=== PATIENT | female | born 1965 | race Caucasian/White ===

== ENCOUNTER 2017-06-26 07:06 | Outpatient (CLI) | payer OTHER ==
--- NOTE | 2017-06-28 08:31 | Mammography Report ---
BILATERAL DIGITAL SCREENING MAMMOGRAM: 06/26/2017 CLINICAL INDICATION: A 52-year-old with history of late childbearing for screening. COMPARISON: 11/2015, 06/2014, 05/2013, 01/2011, 11/2009. TECHNIQUE: Routine CC and MLO projections were obtained of the breasts. FINDINGS: The breasts again demonstrate heterogeneously dense fibroglandular parenchyma bilaterally. Coarse and punctate, typically benign calcifications are present. No suspicious masses, clustered microcalcifications, or regions of architectural distortion are identified. IMPRESSION: Benign findings. RECOMMENDATIONS: Routine annual screening unless otherwise clinically indicated. BIRADS category 2 benign findings. STANDARD QUALIFYING STATEMENTS 1. This examination was reviewed with the aid of Computed-Aided Detection (CAD) . 2. A negative or benign imaging report should not delay biopsy if clinically suspicious findings are present. Consider surgical consultation if warranted. More than 5% of cancers are not identified by imaging. 3. Dense breasts may obscure an underlying neoplasm. TD: 06/27/2017 21:16 TY
== END 2017-06-26 07:07 | disposition home or self-care (01) ==
LOC: DI 07:06
PROVIDERS: ATTEND Physician Assistant Medical
DX: Z12.31 Encounter for screening mammogram for malignant neoplasm of breast (principal)
CPT/HCPCS: 77067

== ENCOUNTER 2017-09-18 08:00 | Outpatient (CLI) | payer OTHER ==
[2017-09-18 12:55] LABS: ALBUMIN 4.5 g/dL (3.2-5.5); ALBUMIN/GLOBULIN RATIO 1.6 (1.0-2.2); ALKALINE PHOSPHATASE 44 IU/L (42-121); ALT ALANINE AMINOTRANSFERASE 47 IU/L (10-60); AST ASPARTATE AMINOTRANSFERASE 34 IU/L (10-42); BUN - BLOOD UREA NITROGEN 13 mg/dL (6-20); CALCIUM 9.1 mg/dL (8.5-10.3); CARBON DIOXIDE - CO2 24 mmol/L (21-32); CHLORIDE 105 mmol/L (101-111); CHOL/HDL RATIO 4.3 (<4.4); CHOLESTEROL 181 mg/dL; CREATININE 0.8 mg/dL (0.4-1.0); GFR - MDRD 75 (>89); GLUCOSE 91 mg/dL (70-100); HDL CHOLESTEROL 42 mg/dL; LDL CHOLESTEROL,CALCULATED 111 mg/dL; LDL/HDL RATIO 2.6 (<4.4); SODIUM 138 mmol/L (135-145); TOTAL PROTEIN 7.3 g/dL (6.7-8.2); VLDL CHOLESTEROL 28 mg/dL
[2017-09-19 09:17] LABS: HEPATITIS C ANTIBODY NON-REACTIVE (NON-REACTIVE)
== END 2017-09-18 08:01 | disposition home or self-care (01) ==
LOC: LAB.WCP 08:00
PROVIDERS: ATTEND Physician Assistant Medical
DX: Z00.00 Encounter for general adult medical examination without abnormal findings (principal); Z78.9 Other specified health status
CPT/HCPCS: 36415; 80053; 80061; 83721; 86803

== ENCOUNTER 2018-07-09 08:00 | Outpatient (CLI) | payer OTHER ==
[2018-07-09 14:42] LABS: ALBUMIN 4.9 g/dL (3.2-5.5); ALBUMIN/GLOBULIN RATIO 1.8 (1.0-2.2); ALKALINE PHOSPHATASE 53 IU/L (42-121); ALT ALANINE AMINOTRANSFERASE 74 IU/L (10-60); AST ASPARTATE AMINOTRANSFERASE 44 IU/L (10-42); BUN - BLOOD UREA NITROGEN 16 mg/dL (6-20); CALCIUM 9.1 mg/dL (8.5-10.3); CARBON DIOXIDE - CO2 27 mmol/L (21-32); CHLORIDE 104 mmol/L (101-111); CREATININE 0.7 mg/dL (0.4-1.0); GFR - MDRD 87 (>89); GLUCOSE 96 mg/dL (70-100); SODIUM 138 mmol/L (135-145); TOTAL PROTEIN 7.7 g/dL (6.7-8.2)
== END 2018-07-09 23:59 | disposition home or self-care (01) ==
LOC: LAB.WCP 08:00
PROVIDERS: ATTEND Physician Assistant Medical
DX: Z00.00 Encounter for general adult medical examination without abnormal findings (principal); E03.9 Hypothyroidism, unspecified; R74.8 Abnormal levels of other serum enzymes
CPT/HCPCS: 36415; 80053; 84443; 86704; 86709

== ENCOUNTER 2018-07-28 16:20 | Outpatient (CLI) | payer OTHER ==
--- NOTE | 2018-07-29 08:28 | Mammography Report ---
Reason: SCREENING MAMMO Procedure Date: 07/28/2018 Accession Number: [id number] / [id number] Procedure: GUSTAVO - Screening Mammo w/Aman CPT Code: FULL RESULT: EXAM: Screening Mammo w/Aman DATE: 07/28/2018 4:49 PM CLINICAL HISTORY: Screening encounter. History of early menses and late childbearing. TECHNIQUE: Bilateral CC, laterally exaggerated CC, MLO views were obtained. COMPARISON: 06/26/2017 through 05/14/2013. FINDINGS: The breasts demonstrate heterogeneously dense fibroglandular parenchyma bilaterally. There are coarse typically benign calcifications. No suspicious masses, clustered microcalcifications, or regions of architectural distortion are identified. IMPRESSION: Benign findings RECOMMENDATION: Routine annual screening unless otherwise clinically indicated. BIRADS CATEGORY 2: Benign findings STANDARD QUALIFYING STATEMENTS: 1. This examination was not reviewed with the aid of Computer-Aided Detection (CAD). 2. A negative or benign imaging report should not preclude biopsy if clinically suspicious findings are present. 3. Dense breasts may obscure an underlying neoplasm. 4. This examination was reviewed with the aid of 3D breast imaging (tomosynthesis).
== END 2018-07-28 16:21 | disposition home or self-care (01) ==
LOC: DI 16:20
DX: Z12.31 Encounter for screening mammogram for malignant neoplasm of breast (principal)
CPT/HCPCS: 77063; 77067

== ENCOUNTER 2019-04-23 09:27 | Outpatient (CLI) | payer OTHER | END 2019-04-23 23:59 | disposition home or self-care (01) | LOC: LAB.WCP 09:27 | PROVIDERS: ATTEND Physician Assistant Medical | DX: Z71.89 Other specified counseling (principal) | CPT/HCPCS: 36415; 86317; 86735; 86762; 86765; 86787 ==

== ENCOUNTER 2020-01-26 08:00 | Outpatient (CLI) | payer OTHER ==
[2020-01-26 12:17] LABS: BASOPHILS % (AUTO) 0.8 %; EOSINOPHILS # (AUTO) 0.1 10^3/uL (0.0-0.7); EOSINOPHILS % (AUTO) 1.8 %; HGB - HEMOGLOBIN 14.6 g/dL (12.0-16.0); LYMPHOCYTES # (AUTO) 1.6 10^3/uL (1.5-3.5); LYMPHOCYTES % (AUTO) 39.8 %; MEAN CORPUSCULAR HGB CONC 34.5 g/dL (32.0-36.0); MEAN CORPUSCULAR VOLUME 92.8 fL (81.0-99.0); MEAN PLATELET VOLUME 11.5 fL (7.9-10.8); MONOCYTES # (AUTO) 0.3 10^3/uL (0.0-1.0); MONOCYTES % (AUTO) 7.7 %; NEUTROPHILS % (AUTO) 49.9 %; PLT - PLATELET COUNT 174 10^3/uL (130-450); RED BLOOD COUNT 4.56 10^6/uL (4.20-5.40); RED CELL DISTRIBUTION WIDTH 12.3 % (12.0-15.0); WHITE BLOOD COUNT 3.9 x10^3/uL (4.8-10.8)
[2020-01-26 12:31] LABS: ALBUMIN 4.5 g/dL (3.2-5.5); ALBUMIN/GLOBULIN RATIO 1.5 (1.0-2.2); ALKALINE PHOSPHATASE 44 IU/L (42-121); ALT ALANINE AMINOTRANSFERASE 42 IU/L (10-60); AST ASPARTATE AMINOTRANSFERASE 33 IU/L (10-42); BILIRUBIN,TOTAL 1.1 mg/dL (0.2-1.0); BUN - BLOOD UREA NITROGEN 13 mg/dL (6-20); CALCIUM 9.3 mg/dL (8.5-10.3); CARBON DIOXIDE - CO2 28 mmol/L (21-32); CHLORIDE 105 mmol/L (101-111); CHOL/HDL RATIO 3.6 (<4.4); CHOLESTEROL 201 mg/dL; CREATININE 0.9 mg/dL (0.4-1.0); GLUCOSE 100 mg/dL (70-100); HDL CHOLESTEROL 56 mg/dL; LDL CHOLESTEROL,CALCULATED 125 mg/dL; LDL/HDL RATIO 2.2 (<4.4); SODIUM 143 mmol/L (135-145); TOTAL PROTEIN 7.6 g/dL (6.7-8.2); VLDL CHOLESTEROL 20 mg/dL
[2020-01-26 12:46] LABS: FERRITIN 228.5 ng/mL (11.0-306.8)
== END 2020-01-26 23:59 | disposition home or self-care (01) ==
LOC: LAB.WCP 08:00
PROVIDERS: ATTEND Physician Assistant Medical
DX: Z00.00 Encounter for general adult medical examination without abnormal findings (principal); R74.8 Abnormal levels of other serum enzymes; K21.9 Gastro-esophageal reflux disease without esophagitis; E03.9 Hypothyroidism, unspecified
CPT/HCPCS: 36415; 80053; 80061; 82728; 83721; 84443; 85025

== ENCOUNTER 2020-04-17 13:41 | Outpatient (CLI) | payer OTHER ==
--- NOTE | 2020-04-18 16:19 | Mammography Report ---
BILATERAL DIGITAL SCREENING MAMMOGRAM 3D/2D: 04/17/2020 CLINICAL: Routine screening. Comparison is made to exams dated: 07/28/2018 mammogram, 06/26/2017 mammogram, 11/28/2015 mammogram, 1 08/16/2013 mammogram, 05/14/2013 mammogram, and 02/01/2011 mammogram - [facility]. T he tissue of both breasts is heterogeneously dense. This may lower the sensitivity of mammography. No significant masses, calcifications, or other findings are seen in either breast. There has been no significant interval change. IMPRESSION: NEGATIVE There is no mammographic evidence of malignancy. A 1 year screening mammogram is recommended. This exam was interpreted at Station ID: [id number]. NOTE: For mammograms, a report in lay terms will be sent to the patient. Approximately 15% of breast malignancies will not be visualized mammographically. In the management of a palpable breast mass, a negative mammogram must not discourage biopsy of a clinically suspicious lesion. Electronically Signed By: Miya zeng/feli:04/17/2020 16:26:20 ACR BI-RADS Category 1: Negative 3341F PARENCHYMAL PATTERN: (D) - The breast(s) demonstrate(s) heterogeneously dense fibroglandular driss arellano. BI-RADS CATEGORY: (1) - 1 RECOMMENDATION: (ANNUAL) - Recommend routine annual screening mammography. [id number] 1 year screening LATERALITY: (B)
== END 2020-04-17 13:42 | disposition home or self-care (01) ==
LOC: DI 13:41
DX: Z12.31 Encounter for screening mammogram for malignant neoplasm of breast (principal)
CPT/HCPCS: 77063; 77067

== ENCOUNTER 2020-11-20 08:00 | Outpatient (CLI) | payer OTHER ==
--- NOTE | 2020-11-20 13:11 | XRAY Report ---
PROCEDURE: Finger(s) LT INDICATIONS: LACERATION OF LEFT RING FINGER TECHNIQUE: AP hand, 2 views of the Ring finger(s) acquired. COMPARISON: None FINDINGS: Bones: No fractures or dislocations. No suspicious bony lesions. Soft tissues: Diffuse soft tissue prominence overlying the distal tip of the index finger. No radiopa que foreign body. IMPRESSION: Soft tissue prominence of the distal aspect of the ring finger without evidence of a radiopaque forei gn body or acute osseous abnormality. Reviewed by: Shon Riley DO on 11/20/2020 12:10 PM GREY Approved by: Shon Riley DO on 11/20/2020 12:10 PM GREY Station ID: [id number]
== END 2020-11-20 23:59 | disposition home or self-care (01) ==
LOC: DI.S 08:00
PROVIDERS: ATTEND Physician Assistant Medical
DX: S65.515A Laceration of blood vessel of left ring finger, initial encounter (principal)

== ENCOUNTER 2021-03-02 08:00 | Outpatient (CLI) | payer OTHER ==
[2021-03-02 18:26] LABS: BASOPHILS % (AUTO) 0.7 %; EOSINOPHILS # (AUTO) 0.1 10^3/uL (0.0-0.7); EOSINOPHILS % (AUTO) 1.6 %; HCT - HEMATOCRIT 45.1 % (37.0-47.0); HGB - HEMOGLOBIN 15.1 g/dL (12.0-16.0); LYMPHOCYTES # (AUTO) 1.7 10^3/uL (1.5-3.5); LYMPHOCYTES % (AUTO) 37.3 %; MEAN CORPUSCULAR HGB CONC 33.5 g/dL (32.0-36.0); MEAN CORPUSCULAR VOLUME 92.6 fL (81.0-99.0); MEAN PLATELET VOLUME 11.3 fL (7.9-10.8); MONOCYTES # (AUTO) 0.3 10^3/uL (0.0-1.0); MONOCYTES % (AUTO) 7.5 %; NEUTROPHILS # (AUTO) 2.4 10^3/uL (1.5-6.6); NEUTROPHILS % (AUTO) 52.7 %; PLT - PLATELET COUNT 187 10^3/uL (130-450); RED BLOOD COUNT 4.87 10^6/uL (4.20-5.40); RED CELL DISTRIBUTION WIDTH 12.5 % (12.0-15.0); WHITE BLOOD COUNT 4.5 x10^3/uL (4.8-10.8)
[2021-03-02 18:46] LABS: ALBUMIN 4.8 g/dL (3.2-5.5); ALBUMIN/GLOBULIN RATIO 1.7 (1.0-2.2); ALKALINE PHOSPHATASE 47 IU/L (42-121); ALT ALANINE AMINOTRANSFERASE 55 IU/L (10-60); AST ASPARTATE AMINOTRANSFERASE 38 IU/L (10-42); BILIRUBIN,TOTAL 1.1 mg/dL (0.2-1.0); BUN - BLOOD UREA NITROGEN 13 mg/dL (6-20); CARBON DIOXIDE - CO2 26 mmol/L (21-32); CHLORIDE 105 mmol/L (101-111); CHOL/HDL RATIO 3.6 (<4.4); CHOLESTEROL 206 mg/dL; CREATININE 0.8 mg/dL (0.4-1.0); GFR - MDRD 74 (>89); GLUCOSE 96 mg/dL (70-100); HDL CHOLESTEROL 57 mg/dL; LDL CHOLESTEROL,CALCULATED 135 mg/dL; LDL/HDL RATIO 2.4 (<4.4); POTASSIUM 4.1 mmol/L (3.5-5.0); SODIUM 138 mmol/L (135-145); THYROID STIMULATING HORMONE 5.68 uIU/mL (0.34-5.60); TOTAL PROTEIN 7.6 g/dL (6.7-8.2); TRIGLYCERIDES 71 mg/dL; VLDL CHOLESTEROL 14 mg/dL
[2021-03-02 19:41] LABS: FREE T4 (FREE THYROXINE) 1.05 ng/dL (0.58-1.64)
== END 2021-03-02 23:59 | disposition home or self-care (01) ==
LOC: LAB.WCP 08:00
PROVIDERS: ATTEND Physician Assistant Medical
DX: Z00.00 Encounter for general adult medical examination without abnormal findings (principal); E55.9 Vitamin D deficiency, unspecified; E03.9 Hypothyroidism, unspecified
CPT/HCPCS: 36415; 80053; 80061; 82306; 83721; 84439; 84443; 85025

== ENCOUNTER 2021-03-30 07:46 | Outpatient (CLI) | payer OTHER ==
--- NOTE | 2021-03-30 08:21 | CARDIAC PROCEDURE NOTE ---
Stress Test Report Service Date: 03/30/21 Service Time: 08:00 Ordering Provider: Lucero Ibarra PA-C Indication for Test: Evaluate atypical chest discomfort. Significant Medical History: -Jimmy has been generally healthy, with ongoing treatment for hypothyroidism and intermittent anxiety, as well as intermittent elevation of blood pressure not requiring ongoing treatment. Over the past several weeks she has noted intermittent bilateral jaw pain with heavy exertion, usually not severe enough to require exercise discontinuation and not accompanied by other symptoms such as diaphoresis, nausea or exaggerated shortness of breath. When she does stop exercising the jaw discomfort resolves fully within seconds. She has also been treated in the past for GERD, with prn anti-acid medications, and had not had her typical GERD symptoms for some time, until recurrence about 2 weeks ago (again improved with TUMS/Pepcid). She also intermittently experiences a non- exertional central substernal chest discomfort that has an electrical quality to it, not related to her other symptoms. 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 She reports noting recent intermittent BP elevations as high as 160 systolic and 110 diastolic, though at other times seeing normal values through self-monitoring with her wrist BP cuff. Cardiac Risk Factors: Most notable for a sister who is 18 months younger having had coronary stent placement about a year ago, though Jimmy states this sister has a much higher risk lifestyle profile than she does. She is not aware of other close relatives with ASCVD events in middle age. Jimmy has borderline hypertension, and was a cigarette smoker, but quit ~20 years ago. She has not been identified as having hyperlipidemia nor diabetes. Type of Stress Test: ETT with Echocardiography Procedure: -Exercise Treadmill Test- After signing informed consent, resting echo images were obtained. The patient then performed treadmill exercise using a Daniel protocol. The patient exercised for 8 minutes 1 second and achieved a peak heart rate of 174 (106 percent predicted maximum heart rate for age), and an estimated workload of 10 METS. The test was terminated due to fatigue/shortness of breath after achieving a heart rate well above target. Resting heart rate: 90 Peak heart rate: 174 Normal response to exercise. Resting BP: 128/95 Peak BP: 216/93 Hypertensive at rest with physiologic BP response to exercise. Rhythm during exercise: Sinus rhythm throughout. Symptoms: She denied experiencing any jaw, chest or epigastric discomfort throughout the study. EKG at rest showed normal sinus rhythm with ~0.[address] depression in leads II, III, aVF and V4-V6. No resting QRS/T abnormalities. EKG at peak stress showed incremental ST depression in the inferior leads (~2.0 mm) and anterolateral leads (~1.5 mm); this ST depression would meet criteria for an ischemic response, but specificity is reduced by the resting ST depression in these leads. In Recovery there was rapid/normal decrease in heart rate and more gradual decrease in BP to a fully normal level of 123/75 at 7 minutes. Echo imaging performed at rest and with stress will be reported separately. IMichael MD, was present throughout this treadmill stress test and supervised the study in all aspects. Summary: 1) Exercise tolerance slightly above average for age and gender as evidenced by YINKA of -12.7%. 2) Abnormal resting EKG. 3) Adequate level of exercise was achieved on this treadmill stress test. 4) Hypertensive BP at rest with physiologic response to exercise. 5) There was significant ST depression with exercise, but with resting ST depression in these leads, the differential explanation could include - ischemia, hypertensive repolarization abnormality or false positive finding due to female gender. 6) Echo image analysis revealed normal left ventricular size and function with normal resting ejection fraction, with global hyperdynamic augmentation of all segments; thus there is no evidence of prior infarct or inducible ischemia. See separate echo report for more details. CONCLUSIONS: 1) Low risk treadmill stress echocardiogram results, with no evidence of inducible ischemia. 2) Exertional tolerance slightly above average for age and gender. 3) Recommend renewed focus on adequacy of ambulatory blood pressure control, given elevation of resting blood pressure and mild non-specific resting/stress- associated repolarization abnormality.
== END 2021-03-30 07:47 | disposition home or self-care (01) ==
LOC: DI 07:46
PROVIDERS: ATTEND Physician Assistant Medical
DX: R07.89 Other chest pain (principal); R94.31 Abnormal electrocardiogram [ECG] [EKG]; E03.9 Hypothyroidism, unspecified; F41.9 Anxiety disorder, unspecified; K21.9 Gastro-esophageal reflux disease without esophagitis; Z87.891 Personal history of nicotine dependence
CPT/HCPCS: 93350

== ENCOUNTER 2021-04-14 07:47 | Outpatient (CLI) | payer OTHER ==
--- NOTE | 2021-04-17 10:37 | Mammography Report ---
BILATERAL DIGITAL SCREENING MAMMOGRAM 3D/2D: 04/14/2021 CLINICAL: Routine screening. Comparison is made to exams dated: 07/28/2018 mammogram, 06/26/2017 mammogram - [facility], and 04/17/2020 mammogram - [facility]. The tissue of both breasts is he terogeneously dense. This may lower the sensitivity of mammography. No significant masses, calcifications, or other findings are seen in either breast. There has been no significant interval change. IMPRESSION: NEGATIVE There is no mammographic evidence of malignancy. A 1 year screening mammogram is recommended. This exam was interpreted at Station ID: [id number]. NOTE: For mammograms, a report in lay terms will be sent to the patient. Approximately 15% of breast malignancies will not be visualized mammographically. In the management of a palpable breast mass, a negative mammogram must not discourage biopsy of a clinically suspicious lesion. Electronically Signed By: Gutierrez conley/feli:04/14/2021 12:29:15 ACR BI-RADS Category 1: Negative 3341F PARENCHYMAL PATTERN: (D) - The breast(s) demonstrate(s) heterogeneously dense fibroglandular driss arellano. BI-RADS CATEGORY: (1) - 1 RECOMMENDATION: (ANNUAL) - Recommend routine annual screening mammography. [id number] 1 year screening LATERALITY: (B)
== END 2021-04-14 07:48 | disposition home or self-care (01) ==
LOC: DI 07:47
PROVIDERS: ATTEND Physician Assistant Medical
DX: Z12.31 Encounter for screening mammogram for malignant neoplasm of breast (principal)

== ENCOUNTER 2021-08-03 08:00 | Outpatient (CLI) | payer OTHER ==
[2021-08-03 12:37] LABS: THYROID STIMULATING HORMONE 0.21 uIU/mL (0.34-5.60)
[2021-08-03 13:12] LABS: FREE T4 (FREE THYROXINE) 1.27 ng/dL (0.58-1.64)
== END 2021-08-03 23:59 | disposition home or self-care (01) ==
LOC: LAB.WCP 08:00
PROVIDERS: ATTEND Physician Assistant Medical
DX: E03.9 Hypothyroidism, unspecified (principal)
CPT/HCPCS: 36415; 84439; 84443

== ENCOUNTER 2021-08-04 14:13 | Outpatient (CLI) | payer OTHER | END 2021-08-04 14:14 | disposition critical access hospital (66) | LOC: EMS 14:13 | DX: M54.50 Low back pain, unspecified (principal); R33.9 Retention of urine, unspecified | CPT/HCPCS: A0425; A0427 ==

== ENCOUNTER 2021-08-04 14:41 | Emergency (ER) | payer OTHER ==
--- NOTE | 2021-08-04 14:55 | ED Physician Documentation ---
History of Present Illness - Stated complaint Stated Complaint: LT FLANK PX - Chief complaint Chief Complaint: Abd Pain - History obtained from History obtained from: Patient, EMS - History of Present Illness Timing: Today Pain level max: 10 Pain level now: 10 - Additonal information Additional information: Patient is a 56-year-old female who presents to the emergency department with sudden onset of left flank pain about an hour prior to arrival. Nothing makes it better or worse. Rates the pain is a 10 out of 10. She states she has been unable to urinate since the pain occurred. Has never had similar symptoms previously. No fevers. No chills. No vaginal bleeding or discharge. No constipation or diarrhea. No changes to her medications. No surgeries. 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 - Present Medications Home Medications: Ambulatory Orders Medication Instructions Recorded Confirmed Levothyroxine [Synthroid] 75 mcg PO DAILY 07/05/14 05/18/15 Acetaminophen [Tylenol] 325 mg PO DAILY PRN 05/13/15 05/13/15 Albuterol [Ventolin Hfa] 2 puffs INH Q4H PRN 05/13/15 05/13/15 Cholecalciferol (Vitamin D3) 2,000 unit PO DAILY 05/13/15 05/13/15 [Vitamin D3] raNITIdine HCL [Zantac 75] 75 mg PO DAILY PRN 05/13/15 05/13/15 Ibuprofen [Motrin] 800 mg PO Q8H PRN #30 tablet 08/04/21 Ondansetron Odt [Zofran] 4 mg TL Q6H PRN #10 tablet 08/04/21 Oxycodone HCl/Acetaminophen 1 - 2 each PO Q6H PRN #14 tablet 08/04/21 [Percocet 5-325 mg Tablet] - Allergies Allergies/Adverse Reactions: Allergies Allergy/AdvReac Type Severity Reaction Status Date / Time aspirin Allergy Severe Anaphylaxis Verified 08/04/21 14:52 PD ED PE NORMAL - Vitals Vital signs reviewed: Yes - General General: Alert and oriented X 3, Other (Appears in significant pain) - HEENT HEENT: Moist mucous membranes - Neck Neck: Supple, no meningeal sign - Cardiac Cardiac: RRR - Respiratory Respiratory: No respiratory distress, Clear bilaterally - Abdomen Abdomen: Soft, Non tender, Non distended - Back Back: No CVA TTP - Derm Derm: Warm and dry - Extremities Extremities: No edema, No calf tenderness / cord - Neuro Neuro: Alert and oriented X 3 Results - Vitals Vitals: Vital Signs - 24 hr 08/04/21 08/04/21 14:46 17:00 Temperature 36.5 C Heart Rate 93 79 Respiratory 19 13 Rate Blood Pressure 202/116 H 193/96 H O2 Saturation 100 95 Oxygen O2 Source Room air - Labs Labs: Laboratory Tests 08/04/21 08/04/21 08/04/21 15:00 15:00 15:39 WBC 6.7 RBC 5.00 Hgb 15.2 Hct 42.9 MCV 85.8 MCH 30.4 MCHC 35.4 RDW 11.7 L Plt Count 197 MPV 10.3 Neut # (Auto) 4.0 Lymph # (Auto) 2.1 Solano # (Auto) 0.5 Eos # (Auto) 0.1 Baso # (Auto) 0.0 Absolute Nucleated RBC 0.00 Nucleated RBC % 0.0 Sodium 137 Potassium 3.3 L Chloride 103 Carbon Dioxide 20 L Anion Gap 14.0 H BUN 17 Creatinine 1.0 Estimated GFR (MDRD) 57 L Glucose 124 H Calcium 9.7 Total Bilirubin 1.0 AST 44 H ALT 60 Alkaline Phosphatase 47 Total Protein 7.7 Albumin 4.8 Globulin 2.9 Albumin/Globulin Ratio 1.7 Lipase 42 Urine Color YELLOW Urine Clarity HAZY Urine pH 7.0 Ur Specific Zimmerman 1.015 Urine Protein NEGATIVE Urine Glucose (UA) NEGATIVE Urine Ketones >=80 H Urine Occult Blood MODERATE H Urine Nitrite NEGATIVE Urine Bilirubin NEGATIVE Urine Urobilinogen 0.2 (NORMAL) Ur Leukocyte Esterase NEGATIVE Urine RBC 11-25 H Urine WBC 0-3 Ur Squamous Epith Cells FEW Squamous Urine Bacteria None Seen Ur Microscopic Review INDICATED Urine Culture Comments NOT INDICATED - Rads (name of study) CT abdomen and pelvis Radiology: Final report received, EMP read contemporaneously, See rad report PD MEDICAL DECISION MAKING - ED course Complexity details: reviewed results, re-evaluated patient, considered differential, d/w patient ED course: 56-year-old female with a 2 to 3 mm Distal left ureteral stone. Pain well controlled in the emergency department. No vomiting. We will have her continue her current medications at home and prescribe pain medication for home. This should pass on its own. Patient also informed of the 1.3 cm right adnexal region coarse calcification. She will follow up with her doctor for a pelvic ultrasound. I am prescribing a short course of short-acting opioid pain medication for this patient. 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 I have discussed that the opioids are for short term therapy only, and will not be refilled from the ED. Patient counseled regarding signs and symptoms for which I believe and urgent re-evaluation would be necessary. Patient with good understanding of and agreement to plan and is comfortable going home at this time This document was made in part using voice recognition software. While efforts are made to proofread this document, sound alike and grammatical errors may occur. IMPRESSION: 1. 2-3 mm distal left ureteral stone causing mild left-sided hydronephrosis. 2. Mild left perirenal stranding and small amount of free fluid which could be due to obstruction, superimposed urinary tract infection or forniceal rupture. 3. Hepatic steatosis. 4. 1.3 cm right adnexal region course calcification. Finding is nonspecific and may be related to adnexal dermoid/teratoma. Recommend pelvic ultrasound when clinically feasible. Departure - Departure Disposition: 01 Home, Self Care Clinical Impression: Ureteral calculus, left Condition: Good Instructions: ED Stone Renal W Colic Follow-Up: Lucero Ibarra PA-C [Primary Care Provider] - Within 1 week Prescriptions: Ibuprofen [Motrin] 800 mg PO Q8H PRN #30 tablet PRN Reason: PAIN &/OR FEVER Oxycodone HCl/Acetaminophen [Percocet 5-325 mg Tablet] 1 - 2 each PO Q6H PRN #14 tablet PRN Reason: pain Ondansetron Odt [Zofran] 4 mg TL Q6H PRN #10 tablet PRN Reason: Nausea / Vomiting Comments: Prescriptions were sent to [facility] in [place]. Please return if you worsen. Please follow-up with your doctor as needed for further care. You also have a calcification in your right adnexal region, by the right ovary, that will need a pelvic ultrasound with your doctor. Drink plenty of fluids. The Motrin will help with the spasming of the ureter, use the oxycodone for any breakthrough pain. IMPRESSION: 1. 2-3 mm distal left ureteral stone causing mild left-sided hydronephrosis. 2. Mild left perirenal stranding and small amount of free fluid which could be due to obstruction, superimposed urinary tract infection or forniceal rupture. 3. Hepatic steatosis. 4. 1.3 cm right adnexal region coarse calcification. Finding is nonspecific and may be related to adnexal dermoid/teratoma. Recommend pelvic ultrasound when clinically feasible. I am prescribing a short course of narcotic pain medication for you. These are potentially dangerous and addictive medications that should be used carefully. These medications may constipate you. Take an atiy-ixa-ugrfsjz stool softener (docusate) twice daily with plenty of water while taking these medications. If you go 24 hours without a bowel movement, take nogf-dqh-sdshkci miralax, per package instructions. Do not drink or drive while taking these medications. If you received narcotic or sedating medications while in the emergency department, do not drive for 24 hours. Store this medication in a safe, secure place and out of reach of children. It is a violation of federal law to give or sell this medication to another rson or to use in a manner other than prescribed. The ED will not refill narcotic prescriptions, including prescriptions lost or stolen. To dispose of unwanted medications: 1. [facility] at [address] in [place] has a medication drop box. They accept prescription medications (in pill form) Saturday through Saturday 9:00 a.m. to 5:00 p.m. 2. The [facility] [employer] accepts prescription medications (in pill form only) for disposal year round. Call for more information. 3. Contact the [facility] for the next [facility] sponsored prescription drug collection event. , [phone], or [phone]; Discharge Date/Time: 08/04/21 17:32
[2021-08-04 15:12] LABS: BASOPHILS % (AUTO) 0.4 %; EOSINOPHILS # (AUTO) 0.1 10^3/uL (0.0-0.7); EOSINOPHILS % (AUTO) 0.7 %; HCT - HEMATOCRIT 42.9 % (37.0-47.0); HGB - HEMOGLOBIN 15.2 g/dL (12.0-16.0); LYMPHOCYTES # (AUTO) 2.1 10^3/uL (1.5-3.5); LYMPHOCYTES % (AUTO) 31.5 %; MEAN CORPUSCULAR HEMOGLOBIN 30.4 pg (27.0-31.0); MEAN CORPUSCULAR HGB CONC 35.4 g/dL (32.0-36.0); MEAN CORPUSCULAR VOLUME 85.8 fL (81.0-99.0); MEAN PLATELET VOLUME 10.3 fL (7.9-10.8); MONOCYTES # (AUTO) 0.5 10^3/uL (0.0-1.0); MONOCYTES % (AUTO) 7.3 %; NEUTROPHILS % (AUTO) 59.8 %; PLT - PLATELET COUNT 197 10^3/uL (130-450); RED CELL DISTRIBUTION WIDTH 11.7 % (12.0-15.0); WHITE BLOOD COUNT 6.7 x10^3/uL (4.8-10.8)
[2021-08-04] MEDS: HYDROmorphone 1 MG/ML CARPUJECT IVP STA (15:13)
[2021-08-04] MEDS: KETOROLAC 30 MG/ML VIAL IVP STA (15:16)
[2021-08-04] MEDS: ONDANSETRON 4 MG/2 ML VIAL IVP STA (15:21)
[2021-08-04 15:23] LABS: ALBUMIN 4.8 g/dL (3.2-5.5); ALBUMIN/GLOBULIN RATIO 1.7 (1.0-2.2); CALCIUM 9.7 mg/dL (8.5-10.3); POTASSIUM 3.3 mmol/L (3.5-5.0); TOTAL PROTEIN 7.7 g/dL (6.7-8.2)
[2021-08-04 15:52] LABS: BILIRUBIN,URINE NEGATIVE (NEGATIVE); GLUCOSE, URINE (UA) NEGATIVE (NEGATIVE); KETONES,URINE (UA) >=80 mg/dL (NEGATIVE); LEUKOCYTE ESTERASE, URINE NEGATIVE (NEGATIVE); NITRITE,URINE NEGATIVE (NEGATIVE); OCCULT BLOOD,URINE MODERATE (NEGATIVE); PROTEIN,URINE NEGATIVE (NEGATIVE); UROBILINOGEN,URINE 0.2 (NORMAL) E.U./dL (NORMAL)
[2021-08-04 15:56] LABS: CLARITY,URINE HAZY (CLEAR)
[2021-08-04] MEDS: SODIUM CHLORIDE 0.9% 1,000 ML IV STA (16:08)
[2021-08-04 16:13] LABS: BACTERIA,URINE None Seen /HPF (None Seen); SQUAMOUS EPITHELIAL CELL,UR FEW Squamous (<= Few); WBC,URINE 0-3 /HPF (0-5)
--- NOTE | 2021-08-04 16:21 | CT Report ---
PROCEDURE: Abdomen/Pelvis WO INDICATIONS: L flank pain TECHNIQUE: Noncontrast 5 mm thick sections acquired from the diaphragms to the symphysis. 5 mm coronal and sagi ttal reformats were then performed. For radiation dose reduction, the following was used: automated exposure control, adjustment of mA and/or kV according to patient size. COMPARISON: None. FINDINGS: Image quality: Excellent. ABDOMEN: Lung bases: Lung bases are clear of acute opacities. 2 mm calcified granuloma noted in the right kristian g base. Heart size is normal. Solid organs: Liver and spleen are normal in size. Diffuse fatty infiltration of the liver. Gallbla dder is within normal limits Pancreas is normal in contours. No adrenal nodules. 2-3 mm stone noted in the distal left ureter causing mild left-sided hydronephrosis. Mild left perinephric stranding an d small amount of left perinephric fluid noted which could be due to obstruction, superimposed urinar y tract infection or forniceal rupture. Peritoneum and bowel: Unenhanced bowel loops demonstrate normal wall thickness and caliber. No free fluid or air. The appendix is normal. Nodes and vessels: No retroperitoneal or mesenteric adenopathy by size criteria. Aorta and inferior vena cava are normal in caliber. Scattered atherosclerotic calcifications noted in the abdominal and pelvic vasculature. Miscellaneous: No ventral hernias. PELVIS: Genitourinary: Bladder wall thickness is normal. 1.3 cm coarse calcification noted in the expected r egion of the right adnexa. Miscellaneous: No inguinal hernias or adenopathy. Bones: No suspicious bony lesions. No vertebral body compression fractures. Spine degenerative disc disease and facet arthropathy are noted. IMPRESSION: 1. 2-3 mm distal left ureteral stone causing mild left-sided hydronephrosis. 2. Mild left perirenal stranding and small amount of free fluid which could be due to obstruction, banegas perimposed urinary tract infection or forniceal rupture. 3. Hepatic steatosis. 4. 1.3 cm right adnexal region course calcification. Finding is nonspecific and may be related to adn exal dermoid/teratoma. Recommend pelvic ultrasound when clinically feasible. Reviewed by: Amparo López MD, PhD on 08/04/2021 4:19 PM PST Approved by: Amparo López MD, PhD on 08/04/2021 4:19 PM PST Station ID: [id number]
[2021-08-04] MEDS: oxyCODONE 5 MG TABLET PO STA (16:37)
[2021-08-04 17:03] VITALS: BP 193/96
== END 2021-08-04 17:32 | disposition home or self-care (01) ==
LOC: EDUNIT# → ED 14:41
DX: N13.2 Hydronephrosis with renal and ureteral calculous obstruction (principal); K83.1 Obstruction of bile duct
CPT/HCPCS: 36415; 74176; 80053; 81001; 83690; 85025; 96374; 96375; 99284; A9270; J1170; 81003; 87086

== ENCOUNTER 2021-08-22 16:36 | Outpatient (CLI) | payer OTHER ==
--- NOTE | 2021-08-23 14:58 | Ultrasound Report ---
PROCEDURE: Pelvic w/Transvaginal INDICATIONS: ADNEXAL MASS TECHNIQUE: Real-time scanning was performed of the pelvic organs, with image documentation. Additional endovagi nal scanning was necessary due to incomplete visualization of the adnexal and endometrial structures by transabdominal scanning. COMPARISON: CT abdomen pelvis 08/04/2021. FINDINGS: No pathologic free abdominal or pelvic fluid. Uterus: Uterus is retroflexed and measures 5.6 x 1.7 x 3.6 cm. The endometrium measures up to 0.9 cm in combined thickness. No internal vascularity within the endometrium on color Doppler interrogatio n. There are coarse shadowing calcifications in the region of the right lower uterine segment which a re nonspecific but suggestive of an exophytic calcified fibroid. Ovaries: There is a tubular cystic structure in the right adnexa suggestive of a mildly dilated fall opian tube. The right ovary measures 1.9 x 0.9 x 2.5 cm and the left ovary measures 3 x 2.1 x 2.1 cm. There is an oval hypoechoic cyst with posterior acoustic enhancement measuring up to 1.9 x 1.6 x 1.9 cm. IMPRESSION: 1. Coarse clustered calcifications along the lower uterine segment corresponding to the findings on r ecent CT are suggestive of a calcified exophytic fibroid. 2. Dilated cystic structure in the right adnexa compatible with mild hydrosalpinx. Findings are of in determinate etiology and if clinically indicated further evaluation may be obtained with an MRI. 3. Slight abnormal endometrial thickening in a postmenopausal female. If clinically indicated, furthe r evaluation may be obtained with MRI. Reviewed by: Blue Lawson MD on 08/23/2021 2:57 PM PST Approved by: Blue Lawson MD on 08/23/2021 2:57 PM PST Station ID: [id number]
== END 2021-08-22 16:37 | disposition home or self-care (01) ==
LOC: DI 16:36
PROVIDERS: ATTEND Physician Assistant
DX: R19.09 Other intra-abdominal and pelvic swelling, mass and lump (principal); N70.11 Chronic salpingitis

== ENCOUNTER 2021-09-13 13:14 | Outpatient (CLI) | payer OTHER | END 2021-09-13 13:15 | disposition home or self-care (01) | LOC: NS 13:14 | PROVIDERS: ATTEND Physician Assistant | DX: Z71.3 Dietary counseling and surveillance (principal); K76.0 Fatty (change of) liver, not elsewhere classified; N20.0 Calculus of kidney ==

== ENCOUNTER 2021-10-03 15:37 | Outpatient (CLI) | payer OTHER | END 2021-10-03 15:38 | disposition home or self-care (01) | LOC: NS 15:37 | PROVIDERS: ATTEND Physician Assistant | DX: Z71.3 Dietary counseling and surveillance (principal); K76.0 Fatty (change of) liver, not elsewhere classified; N20.0 Calculus of kidney ==

== ENCOUNTER 2021-10-24 12:59 | Outpatient (CLI) | payer OTHER | END 2021-10-24 13:00 | disposition home or self-care (01) | LOC: NS 12:59 | PROVIDERS: ATTEND Physician Assistant | DX: Z71.3 Dietary counseling and surveillance (principal); K76.0 Fatty (change of) liver, not elsewhere classified; N20.0 Calculus of kidney ==

== ENCOUNTER 2021-11-08 09:03 | Outpatient (CLI) | payer OTHER | END 2021-11-08 09:04 | disposition home or self-care (01) | LOC: NS 09:03 | PROVIDERS: ATTEND Physician Assistant | DX: Z71.3 Dietary counseling and surveillance (principal); K76.0 Fatty (change of) liver, not elsewhere classified; N20.0 Calculus of kidney ==

== ENCOUNTER 2021-11-22 08:04 | Outpatient (CLI) | payer OTHER | END 2021-11-22 08:05 | disposition home or self-care (01) | LOC: NS 08:04 | PROVIDERS: ATTEND Physician Assistant | DX: Z71.3 Dietary counseling and surveillance (principal); K76.0 Fatty (change of) liver, not elsewhere classified; N20.0 Calculus of kidney; Z68.31 Body mass index [BMI] 31.0-31.9, adult ==

== ENCOUNTER 2021-12-13 13:00 | Outpatient (CLI) | payer OTHER | END 2021-12-13 13:01 | disposition home or self-care (01) | LOC: NS 13:00 | PROVIDERS: ATTEND Physician Assistant | DX: Z71.3 Dietary counseling and surveillance (principal); K76.0 Fatty (change of) liver, not elsewhere classified; N20.0 Calculus of kidney ==

== ENCOUNTER 2022-01-03 11:21 | Outpatient (CLI) | payer OTHER | END 2022-01-03 11:22 | disposition home or self-care (01) | LOC: NS 11:21 | PROVIDERS: ATTEND Physician Assistant | DX: Z71.3 Dietary counseling and surveillance (principal); K76.0 Fatty (change of) liver, not elsewhere classified; N20.0 Calculus of kidney ==

== ENCOUNTER 2022-03-28 15:16 | Outpatient (CLI) | payer OTHER | END 2022-03-28 15:17 | disposition home or self-care (01) | LOC: NS 15:16 | PROVIDERS: ATTEND Physician Assistant | DX: Z71.3 Dietary counseling and surveillance (principal); K76.0 Fatty (change of) liver, not elsewhere classified; N20.0 Calculus of kidney ==

== ENCOUNTER 2022-04-24 07:57 | Outpatient (CLI) | payer OTHER | END 2022-04-24 07:58 | disposition home or self-care (01) | LOC: NS 07:57 | PROVIDERS: ATTEND Physician Assistant | DX: Z71.3 Dietary counseling and surveillance (principal); K76.0 Fatty (change of) liver, not elsewhere classified; N20.0 Calculus of kidney ==

== ENCOUNTER 2022-05-28 08:20 | Outpatient (CLI) | payer OTHER | END 2022-05-28 08:21 | disposition home or self-care (01) | LOC: NS 08:20 | PROVIDERS: ATTEND Physician Assistant | DX: Z53.9 Procedure and treatment not carried out, unspecified reason (principal) ==

== ENCOUNTER 2022-06-27 09:52 | Outpatient (CLI) | payer OTHER | END 2022-06-27 09:53 | disposition home or self-care (01) | LOC: NS 09:52 | PROVIDERS: ATTEND Physician Assistant | DX: K76.0 Fatty (change of) liver, not elsewhere classified (principal); N20.0 Calculus of kidney; Z71.3 Dietary counseling and surveillance; Z71.89 Other specified counseling; Z68.28 Body mass index [BMI] 28.0-28.9, adult ==

== ENCOUNTER 2022-09-13 15:21 | Outpatient (CLI) | payer OTHER ==
--- NOTE | 2022-09-14 12:03 | Mammography Report ---
BILATERAL DIGITAL SCREENING MAMMOGRAM 3D/2D: 09/13/2022 CLINICAL: Routine screening. Comparison is made to exams dated: 04/14/2021 mammogram - [facility], 07/28/2018 gonzalo mogram - [facility], 04/17/2020 mammogram - [facility], 017 mammogram, 11/28/2015 mammogram, and 06/15/2014 mammogram - [facility]. Both breasts are heterogeneously dense, which may obscure small masses (category c / 51-75% glandular tissue). No significant masses, calcifications, or other findings are seen in either breast. There has been no significant interval change. IMPRESSION: NEGATIVE There is no mammographic evidence of malignancy. A 1 year screening mammogram is recommended. Based on the Tyrer Cuzick model (a risk assessment model) the patients lifetime risk is 12.1% and he r 10 year risk is 4.7%. According to the ACR, ACS, and NCCN guidelines, an annual breast MRI exam nicole ng with mammogram is recommended if the patients lifetime risk is 20% or greater. This exam was interpreted at Station ID: [id number]. NOTE: For mammograms, a report in lay terms will be sent to the patient. Approximately 15% of breast malignancies will not be visualized mammographically. In the management of a palpable breast mass, a negative mammogram must not discourage biopsy of a clinically suspicious lesion. Electronically Signed By: Omer Donohue M.D. [email or web address]/[email or web address]:09/14/2022 08:40:50 letter sent: No_Letter ACR BI-RADS Category 1: Negative 3341F PARENCHYMAL PATTERN: (D) - The breast(s) demonstrate(s) heterogeneously dense fibroglandular parenchy ma. BI-RADS CATEGORY: (1) - 1 Mammogram [id number] 1 year screening LATERALITY: (B)
== END 2022-09-13 15:22 | disposition home or self-care (01) ==
LOC: DI 15:21
DX: Z12.31 Encounter for screening mammogram for malignant neoplasm of breast (principal)

== ENCOUNTER 2023-02-14 08:24 | Outpatient (CLI) | payer OTHER ==
[2023-02-14 08:41] LABS: BASOPHILS % (AUTO) 0.9 %; EOSINOPHILS # (AUTO) 0.1 10^3/uL (0.0-0.7); EOSINOPHILS % (AUTO) 1.8 %; HCT - HEMATOCRIT 43.5 % (37.0-47.0); HGB - HEMOGLOBIN 15.2 g/dL (12.0-16.0); LYMPHOCYTES # (AUTO) 1.6 10^3/uL (1.5-3.5); LYMPHOCYTES % (AUTO) 35.6 %; MEAN CORPUSCULAR HEMOGLOBIN 30.8 pg (27.0-31.0); MEAN CORPUSCULAR HGB CONC 34.9 g/dL (32.0-36.0); MEAN CORPUSCULAR VOLUME 88.1 fL (81.0-99.0); MEAN PLATELET VOLUME 10.1 fL (7.9-10.8); MONOCYTES # (AUTO) 0.3 10^3/uL (0.0-1.0); MONOCYTES % (AUTO) 7.2 %; NEUTROPHILS # (AUTO) 2.4 10^3/uL (1.5-6.6); NEUTROPHILS % (AUTO) 54.3 %; PLT - PLATELET COUNT 184 10^3/uL (130-450); RED BLOOD COUNT 4.94 10^6/uL (4.20-5.40); RED CELL DISTRIBUTION WIDTH 11.8 % (12.0-15.0); WHITE BLOOD COUNT 4.5 x10^3/uL (4.8-10.8)
[2023-02-14 08:57] LABS: % IRON SATURATION 35 % (20-50); ALBUMIN 4.7 g/dL (3.2-5.5); ALKALINE PHOSPHATASE 51 IU/L (42-121); ALT ALANINE AMINOTRANSFERASE 66 IU/L (10-60); AST ASPARTATE AMINOTRANSFERASE 38 IU/L (10-42); BILIRUBIN,TOTAL 0.9 mg/dL (0.2-1.0); BUN - BLOOD UREA NITROGEN 13 mg/dL (6-20); CALCIUM 9.4 mg/dL (8.5-10.3); CARBON DIOXIDE - CO2 29 mmol/L (21-32); CHLORIDE 106 mmol/L (101-111); CHOL/HDL RATIO 3.4 (<4.4); CHOLESTEROL 161 mg/dL; CREATININE 0.9 mg/dL (0.6-1.3); GFR - MDRD 64 (>89); GLUCOSE 94 mg/dL (74-104); HDL CHOLESTEROL 48 mg/dL; IRON 108 ug/dL (50-212); LDL CHOLESTEROL,CALCULATED 95 mg/dL; POTASSIUM 4.5 mmol/L (3.5-4.5); SODIUM 138 mmol/L (135-145); TOTAL IRON BINDING CAPACITY 312 ug/dL (250-450); TRANSFERRIN 223 mg/dL (203-362); TRIGLYCERIDES 92 mg/dL (48-352); VLDL CHOLESTEROL 18 mg/dL
[2023-02-14 09:11] LABS: THYROID STIMULATING HORMONE 0.44 uIU/mL (0.34-5.60)
== END 2023-02-14 08:25 | disposition home or self-care (01) ==
LOC: LAB 08:24
PROVIDERS: ATTEND Physician Assistant
DX: Z00.00 Encounter for general adult medical examination without abnormal findings (principal); I10 Essential (primary) hypertension; E03.9 Hypothyroidism, unspecified; K21.9 Gastro-esophageal reflux disease without esophagitis
CPT/HCPCS: 36415; 80053; 80061; 83540; 83721; 84443; 84466; 85025

== ENCOUNTER 2023-07-29 07:58 | Outpatient (CLI) | payer OTHER ==
[2023-07-29 08:15] LABS: BASOPHILS % (AUTO) 0.7 %; EOSINOPHILS # (AUTO) 0.1 10^3/uL (0.0-0.7); EOSINOPHILS % (AUTO) 1.4 %; HCT - HEMATOCRIT 45.2 % (37.0-47.0); HGB - HEMOGLOBIN 15.7 g/dL (12.0-16.0); LYMPHOCYTES # (AUTO) 1.7 10^3/uL (1.5-3.5); LYMPHOCYTES % (AUTO) 37.8 %; MEAN CORPUSCULAR HEMOGLOBIN 30.5 pg (27.0-31.0); MEAN CORPUSCULAR HGB CONC 34.7 g/dL (32.0-36.0); MEAN CORPUSCULAR VOLUME 87.8 fL (81.0-99.0); MEAN PLATELET VOLUME 10.2 fL (7.9-10.8); MONOCYTES # (AUTO) 0.3 10^3/uL (0.0-1.0); MONOCYTES % (AUTO) 6.4 %; NEUTROPHILS # (AUTO) 2.3 10^3/uL (1.5-6.6); NEUTROPHILS % (AUTO) 53.5 %; PLT - PLATELET COUNT 198 10^3/uL (130-450); RED BLOOD COUNT 5.15 10^6/uL (4.20-5.40); RED CELL DISTRIBUTION WIDTH 11.8 % (12.0-15.0); WHITE BLOOD COUNT 4.4 x10^3/uL (4.8-10.8)
[2023-07-29 08:30] LABS: ALBUMIN 4.6 g/dL (3.2-5.5); ALBUMIN/GLOBULIN RATIO 2.1 (1.0-2.2); BILIRUBIN,TOTAL 0.9 mg/dL (0.2-1.0); CALCIUM 9.6 mg/dL (8.5-10.3); CREATININE 0.8 mg/dL (0.6-1.3); MAGNESIUM 1.8 mg/dL (1.7-2.3); POTASSIUM 4.5 mmol/L (3.5-4.5); TOTAL PROTEIN 6.8 g/dL (6.4-8.9)
[2023-07-29 08:44] LABS: THYROID STIMULATING HORMONE 0.12 uIU/mL (0.34-5.60)
== END 2023-07-29 07:59 | disposition home or self-care (01) ==
LOC: LAB 07:58
PROVIDERS: ATTEND Physician Assistant
DX: I10 Essential (primary) hypertension (principal); R00.2 Palpitations
CPT/HCPCS: 36415; 80053; 83735; 84439; 84443; 84481; 85025

== ENCOUNTER 2023-12-23 08:06 | Outpatient (CLI) | payer OTHER ==
[2023-12-23 08:48] LABS: THYROID STIMULATING HORMONE 1.47 uIU/mL (0.34-5.60)
== END 2023-12-23 08:07 | disposition home or self-care (01) ==
LOC: LAB 08:06
PROVIDERS: ATTEND Physician Assistant Medical
DX: E03.9 Hypothyroidism, unspecified (principal)
CPT/HCPCS: 36415; 84443

== ENCOUNTER 2024-03-31 07:38 | Outpatient (CLI) | payer OTHER ==
--- NOTE | 2024-04-01 10:59 | Mammography Report ---
BILATERAL DIGITAL SCREENING MAMMOGRAM 3D/2D: 03/31/2024 CLINICAL: Routine screening. Comparison is made to exams dated: 09/13/2022 mammogram, 04/14/2021 mammogram, 04/17/2020 mammogram - [facility], 07/28/2018 mammogram, and 06/26/2017 mammogram - [facility]. The breasts are heterogeneously dense, which may obscure small masses (category c / 51-75% glandular tissue). No significant masses, calcifications, or other findings are seen in either breast. There has been no significant interval change. IMPRESSION: NEGATIVE There is no mammographic evidence of malignancy. A 1 year screening mammogram is recommended. Based on the Tyrer Cuzick model (a risk assessment model) the patient's lifetime risk is 11.9% and he r 10 year risk is 4.8%. According to the ACR, ACS, and NCCN guidelines, an annual breast MRI exam nicole ng with mammogram is recommended if the patient's lifetime risk is 20% or greater. This exam was interpreted at Station ID: [id number]. NOTE: For mammograms, a report in lay terms will be sent to the patient. Approximately 15% of breast malignancies will not be visualized mammographically. In the management of a palpable breast mass, a negative mammogram must not discourage biopsy of a clinically suspicious lesion. Electronically Signed By: Jorge [email or web address]:03/31/2024 12:28:20 letter sent: No_Letter ACR BI-RADS Category 1: Negative PARENCHYMAL PATTERN: (D) - The breast(s) demonstrate(s) heterogeneously dense fibroglandular driss arellano. BI-RADS CATEGORY: (1) - 1 RECOMMENDATION: (ANNUAL) - Recommend routine annual screening mammography. [id number] 1 year screening LATERALITY: (B)
== END 2024-03-31 07:39 | disposition home or self-care (01) ==
LOC: DI 07:38
DX: Z12.31 Encounter for screening mammogram for malignant neoplasm of breast (principal); R92.333 Mammographic heterogeneous density, bilateral breasts

== ENCOUNTER 2024-03-31 07:53 | Outpatient (CLI) | payer OTHER ==
--- NOTE | 2024-03-31 16:15 | DEXA Report ---
PROCEDURE: Dexa Spine and/or Hip INDICATIONS: POST MENOPAUSAL TECHNIQUE: Dual energy x-ray absorptiometry (DEXA) was performed in the regions detailed below. COMPARISON: None. FINDINGS: Lumbar Spine: Bone Mineral Density 1.157. g/cm/cm,T score -0.2 . Normal Left Femoral Neck: Bone Mineral Density 0.826 g/cm/cm, T score -1.5. Osteopenia Left Total Hip: Bone Mineral Density 0.959 g/cm/cm,T score -0.4. Normal (T score greater or equal to -1.0: NORMAL) (T score from -1.1 to -2.4: OSTEOPENIA) (T score less than or equal to -2.5 to: OSTEOPOROSIS) IMPRESSION: Left femoral neck osteopenia Patients with diagnosis of osteoporosis or osteopenia should have regular bone mineral density assess ment. For those eligible for Medicare, routine testing is allowed once every 2 years. Testing frequ ency can be increased for patients who have rapidly progressing disease or for those who are receivin g medical therapy to restore bone mass. Reviewed by: Steven Clemente MD on 03/31/2024 3:14 PM GREY Approved by: Steven Clemente MD on 03/31/2024 3:14 PM AKCELINA Station ID: [id number]
== END 2024-03-31 07:54 | disposition home or self-care (01) ==
LOC: DI 07:53
PROVIDERS: ATTEND Physician Assistant Medical
DX: M85.88 Other specified disorders of bone density and structure, other site (principal); Z78.0 Asymptomatic menopausal state